=== PATIENT | male | born 1985 | race Caucasian/White ===

== ENCOUNTER 2018-04-16 14:10 | Emergency (ER) | payer OTHER ==
[2018-04-16] MEDS ORDERED: SODIUM CHLORIDE 0.9% FLUSH 10 ML FLUSH IV FLUSH PRN (18:30)
[2018-04-16] MEDS ORDERED: ONDANSETRON ODT 4 MG TAB PO ONE (18:30)
[2018-04-16] MEDS ORDERED: MORPHINE SULFATE 4 MG/ML INJ IV PUSH ONE (18:30)
--- NOTE | 2018-04-16 18:35 | PD ---
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 He now has pain in the lower lumbar spine and pelvis. Patient denies weakness but has pain. He denies numbness or tingling. His pain is localized to the central lumbar spine and right pelvic area. He is ambulatory to the room. Patient denies hitting his head or loss of consciousness. He denies any chest pains, shortness of breath, or abdominal pain. Patient states he has urinated since the incident and denies hematuria. Pain is currently 8 out of 10. It is worse with movement. He has no known drug allergies. [facility] Social History Alcohol Use: Yes Tobacco Use: Yes Substance Use: No Allergies-Medications (Allergen,Severity, Reaction): Coded Allergies: No Known Allergies (Unverified , 04/16/18) Reported Meds & Prescriptions Reported Meds & Active Scripts Active No Active Prescriptions or Reported Medications Review of Systems Except as stated in HPI: all other systems reviewed are Neg General / Constitutional: No: Fever Eyes: No: Visual changes HENT: No: Headaches Cardiovascular: No: Chest Pain or Discomfort Respiratory: No: Shortness of Breath Gastrointestinal: No: Abdominal Pain Genitourinary: No: Dysuria Musculoskeletal: Positive: Myalgias, Arthralgias, No: Pain Skin: No Rash Neurologic: No: Weakness Psychiatric: No: Depression Endocrine: No: Polydipsia Hematologic/Lymphatic: No: Easy Bruising Physical Exam Narrative GENERAL: Patient appears uncomfortable and in moderate distress. SKIN: Warm and dry. Normal color. Normal turgor. No abrasions or open wounds. No obvious ecchymosis per HEAD: Atraumatic. Normocephalic. EYES: Pupils equal and round. No scleral icterus. No injection or drainage. ENT: No nasal bleeding or discharge. Mucous membranes pink and moist. Pharynx is clear. Airways patent. NECK: Trachea midline. No bony tenderness or step-off. Range of motion is full CARDIOVASCULAR: Regular rate and rhythm. RESPIRATORY: No accessory muscle use. Clear to auscultation. Breath sounds equal bilaterally. GASTROINTESTINAL: Abdomen soft, non-tender, nondistended. Hepatic and splenic margins not palpable. MUSCULOSKELETAL: Extremities without clubbing, cyanosis, or edema. No obvious deformities. Patient is ambulatory to the room. He is guarded in his movements. Spine has no significant point tenderness or bony step-off. Patient complains of generalized pain in the L5-S1 area. No obvious pelvic instability is appreciated. Patient has increased pain with straight leg raise bilaterally. Patient has normal plantar and dorsal flexion. Deep tendon reflexes are 2+ and equal bilaterally. NEUROLOGICAL: Awake and alert. No obvious cranial nerve deficits. Motor grossly within normal limits. Five out of 5 muscle strength in the arms and legs. Normal speech. PSYCHIATRIC: Appropriate mood and affect; insight and judgment normal. Data Data Orders Orders Ct Lumb Spine W/O Contrast (04/16/18 18:29) Complete Blood Count With Diff (04/16/18 18:30) Comprehensive Metabolic Panel (04/16/18 18:30) Urinalysis - C+S If Indicated (04/16/18 18:30) Iv Access Insert/Monitor (04/16/18 18:30) Ecg Monitoring (04/16/18 18:30) Oximetry (04/16/18 18:30) Morphine Inj (Morphine Inj) (04/16/18 18:30) Sodium Chloride 0.9% Flush (Ns Flush) (04/16/18 18:30) Ondansetron Odt (Zofran Odt) (04/16/18 18:30) MDM Medical Decision Making Medical Screen Exam Complete: Yes Emergency Medical Condition: Yes Differential Diagnosis Workplace injury. Lumbar contusion. Pelvic contusion. Possible fracture. Narrative Course Patient appears medically stable at time of exam. CT of the lumbar spine without contrast is ordered. IV access is obtained the patient is given 4 mg morphine IV CBC, CMP, and urinalysis is ordered. Patient is given 4 mg Zofran p.o. 1900 hrs., Change of shift, patient care is assumed by Dr. Briggs who will determine final disposition and discharge for the patient. Scripts No Active Prescriptions or Reported Meds Condition: Stable Delano Marley Apr 16, 2018 18:35
[2018-04-16] MEDS ORDERED: KETOROLAC TROMETHAMINE 60 MG/2 ML (IM) VIAL IM ONE (19:15)
[2018-04-16] MEDS ORDERED: oxyCODONE/ACETAMINOPHEN 5 MG/325 MG TAB PO ONE (20:15)
--- NOTE | 2018-04-16 20:47 | RADRPT ---
EXAM DATE: 04/16/2018 8:12 PM EDT AGE/SEX: 32 years / Male INDICATIONS: Lower back pain today. CLINICAL DATA: This is the patient's initial encounter. Patient reports that signs and symptoms have been present for 1 day and indicates a pain score of 9/10. MEDICAL/SURGICAL HISTORY: None. None. RADIATION DOSE: 34.77 CTDI (mGy) COMPARISON: No prior exams available for comparison. TECHNIQUE: Contiguous axial images were acquired with a multirow detector CT scanner without contras t. Multiplanar reconstructions in the sagittal and coronal plane were also performed. Using automate d exposure control and adjustment of the mA and/or kV according to patient size, radiation dose was k ept as low as reasonably achievable to obtain optimal diagnostic quality images. DICOM format image data is available electronically for review and comparison. FINDINGS: Sagittal images demonstrate normal vertebral body alignment and curvature. No fractures are identifie d. Axial images performed from T12-L1 through L5-S1. T12-L1: No significant abnormalities identified. L1-L2: No significant abnormalities identified. L2-L3: No significant abnormalities identified. L3-L4: No significant abnormalities identified. L4-L5: No significant abnormalities identified. L5-S1: No significant abnormalities identified. CONCLUSION: 1. Negative CT scan of the lumbar spine Electronically signed by: Hoang Morales MD 04/16/2018 8:45 PM EDT
[2018-04-16] MEDS ORDERED: NAPR500T2 PO (20:55)
--- NOTE | 2018-04-16 20:55 | PD ---
Data Data Orders Orders Ct Lumb Spine W/O Contrast (04/16/18 18:29) Urinalysis - C+S If Indicated (04/16/18 18:30) Morphine Inj (Morphine Inj) (04/16/18 18:30) Sodium Chloride 0.9% Flush (Ns Flush) (04/16/18 18:30) Ondansetron Odt (Zofran Odt) (04/16/18 18:30) Ketorolac Inj (Toradol Inj) (04/16/18 19:15) Oxycodone-Acetamin 5-325 Mg (Percocet (04/16/18 20:15) MDM Supervised Visit with PRIYANKA: Yes Narrative Course The history, exam, and medical decision-making in the associated midlevel provider note were completed with my assistance. I reviewed and agree with the findings presented. I attest that I had a [id number] encounter with the patient on the same day, and personally performed and documented my assessment and findings in the medical record. *My assessment and Findings: This is a 32-year-old male who presents to the emergency department having with low back pain. His mechanism of injury is fairly significant but the patient does not want an IV or blood work. He agreed to a CT of his low back which was reassuring. Patient has no abdominal pain or tenderness on exam. I did advise him because of his mechanism that if he develops abdominal pain, lightheadedness or dizziness that he should return to the emergency department immediately and would consider doing further imaging. I think he can safely be discharged and follow-up with his primary care physician. Diagnosis Primary Impression: Lower back injury Qualified Codes: S39.92XA - Unspecified injury of lower back, initial encounter Patient Instructions: General Instructions Additional Instruction: If you develop abdominal pain, lightheadedness, dizziness or new symptoms return to the emergency department immediately as we did not perform any pictures of your abdomen. Med/Other Pt SpecificInfo: Prescription(s) given Scripts Naproxen (Naproxen) 500 Mg Tab 500 MG PO BID Y for PAIN SCALE 4 TO 10, #10 TAB 0 Refills Prov: Tess Rubio MD 04/16/18 Disposition: 01 DISCHARGE HOME Condition: Stable Tess Rubio MD Apr 16, 2018 20:55
[2018-04-16 21:29] LABS: BILIRUBIN, URINE NEG (NEG); BLOOD, URINE NEG (NEG); GLUCOSE,URINE NEG (NEG); KETONE, URINE NEG (NEG); MUCUS URINE FEW /lpf (OCC); NITRITE,URINE NEG (NEG); SQUAMOUS EPITHELIAL CELL URINE 1 /hpf (0-5); URINE COLOR YELLOW (YELLW/STRAW); URINE LEUKOCYTE ESTERASE NEG (NEG)
== END 2018-04-16 21:01 | disposition home or self-care (01) ==
LOC: NEPD 14:10
DX: S39.92XA Unspecified injury of lower back, initial encounter (principal); W31.82XA Contact with other commercial machinery, initial encounter
CPT/HCPCS: 72131; 81001; 96372; 99284; J1885